=== PATIENT | female | born 1975 | race Caucasian/White ===

== ENCOUNTER 2017-07-03 12:23 | Inpatient (IN) | payer OTHER ==
[~2017-07-03] VITALS: Ht 165.1 cm; Wt 113.4 kg
[2017-07-03] MEDS ORDERED: PREN29TA PO (12:59)
[2017-07-03] MEDS ORDERED: ONDANSETRON ODT 4 MG TAB PO PRN (13:00)
[2017-07-03] MEDS ORDERED: ACETAMINOPHEN 325 MG TAB PO PRN (13:00)
[2017-07-03] MEDS ORDERED: LEVO.125 PO (13:00)
[2017-07-03] MEDS ORDERED: SODIUM CHLORIDE 0.9% FLUSH 10 ML FLUSH IV FLUSH PRN (13:00)
--- NOTE | 2017-07-03 13:01 | HHI.HP ---
HPI Chief Complaint PREC / IUGR? Travel History International Travel<30 Days: No Contact w/Intl Traveler<30Days: No History of Present Illness HPI 41 yo G1 at 35 weeks and 2 days by her LMP c/w 6w US (ALESIA 08/05/17) who i saw today for routine outpatient visit, was found to have new mild range BP of 140/ 80 and I sent to the hospital to rule out preeclampsia, also for close observation and BMZ given growth restriction and newly elevated UA Dopplers. Patient denies headache, blurry vision, epigastric pain, vaginal bleeding discharge or contractions. Endorses movement. has been complicated by growth restriction, peripheral cord insertion, hypothyroidism, advanced maternal age, h/o genital HSV, rubella equivocal status, glucose intolerance (Failed 1hr, passed 3 hour) History Past Medical History Narrative Medical 1. Obesity 2. Hypothyroidism 3. Genital HSV Obstetric History Obstetric History G1 Past Surgical History Narrative Surgical 1. 06/27/2016: Right oophorectomy Family History Narrative Family History Diabetes and hypertension Social History Alcohol Use: No Tobacco Use: No Substance Abuse: No Allergies-Medications (Allergen,Severity, Reaction): Coded Allergies: No Known Allergies (Unverified , 07/03/17) Home Meds Reported Medications Levothyroxine (Synthroid) 125 Mcg Tab, 125 MCG PO DAILY for Thyroid, #30 TAB 0 Refills 07/03/17 Vit-Iron Carbonyl ( Plus Iron 29-1 mg) 29 Mg Iron-1 Mg Tab, 1 TAB PO DAILY for Nutritional Supplement, #30 TAB 0 Refills 07/03/17 Narrative Medication Synthroid 125 g daily vitamin Review of Systems General / Constitutional: No: Fever, Weight Gain, Chills, Other Eyes: No: Diploplia, Blurred Vision, Visual changes, Pain, Photophobia HENT: No: Headaches, Vertigo, Lightheadedness Cardiovascular: No: Irregular Rhythm, Chest Pain or Discomfort, Palpitations, Tachycardia, Syncope, Varicosities, Edema, Cyanosis Respiratory: No: Cough, Short of Breath, Other Gastrointestinal: No: Nausea, Vomiting, Diarrhea Genitourinary: No: Decreased Urinary Output, Oliguria Musculoskeletal: No: Limited ROM, Weakness, Cramping, Edema, Pain Skin: No Rash, No Itching, No Dryness, No Lumps, No Change in Pigmentation, No Change in Nails, No Alopecia, No Lesions Neurologic: No: Weakness, Dizziness, Syncope, Focal Abnormalities, Coordination Problem, Headache, Slurred Speech, Seizures Psychiatric: No: Depression, Suicidal Ideations, Homicidal Ideation Endocrine: No: Heat Intolerance, Cold Intolerance, Polydipsia, Polyuria, Other Physical Exam Narrative Vitals: Temperature 98.4, pulse 77, respiratory rate 18, blood pressure 138/83, MAP 95 GENERAL: Well-nourished, well-developed patient. SKIN: Warm and dry. HEAD: Normocephalic and atraumatic. EYES: No scleral icterus. No injection or drainage. ENT: No nasal drainage noted. Mucous membranes pink. Airway patent. NECK: Supple, trachea midline. No JVD. CARDIOVASCULAR: Regular rate and rhythm without murmurs, gallops, or rubs. RESPIRATORY: Breath sounds equal bilaterally. No accessory muscle use. BREASTS: Bilateral exam showed no masses , no retractions, no nipple discharge. ABDOMEN/GI: Abdomen soft, non-tender, bowel sounds present, no rebound, no guarding, Gravid GENITOURINARY: Deferred FHT's: 140s, moderate variability, accelerations present, no decelerations TOCO: Every 3-5 minutes EXTREMITIES: No cyanosis or edema. BACK: Nontender without obvious deformity. No CVA tenderness. NEUROLOGICAL: Awake and alert. Motor and sensory grossly within normal limits. Normal speech. Caprini VTE Risk Assessment Caprini VTE Risk Assessment: Mod/High Risk (score >= 2) Caprini Risk Assessment Model Point Value = 1 Point Value = 2 Point Value = 3 Point Value = 5 Age 41-60 Minor surgery BMI > 25 kg/m2 Swollen legs Varicose veins or History of unexplained or recurrent spontaneous Oral contraceptives or hormone replacement Sepsis (< 1 month) Serious lung disease, including pneumonia (< 1 month) Abnormal pulmonary function Acute myocardial infarction Congestive heart failure (< 1 month) History of inflammatory bowel disease Medical patient at bed rest Age 61-74 Arthroscopic surgery Major open surgery (> 45 min) Laparoscopic surgery (> 45 min) Malignancy Confined to bed (> 72 hours) Immobilizing plaster cast Central venous access Age >= 75 History of VTE Family history of VTE Factor V Leiden Prothrombin [id number] Lupus anticoagulant Anticardiolipin antibodies Elevated serum homocysteine Heparin-induced thrombocytopenia Other congenital or acquired thrombophilia Stroke (< 1 month) Elective arthroplasty Hip, pelvis, or leg fracture Acute spinal cord injury (< 1 month) Prophylaxis Regimen Total Risk Factor Score Risk Level Prophylaxis Regimen 0-1 Low Early ambulation 2 Moderate Order ONE of the following: *Sequential Compression Device (SCD) *Heparin 5000 units SQ BID 3-4 Higher Order ONE of the following medications: *Heparin 5000 units SQ TID *Enoxaparin/Lovenox 40 mg SQ daily (WT < 150 kg, CrCl > 30 mL/min) *Enoxaparin/Lovenox 30 mg SQ daily (WT < 150 kg, CrCl > 10-29 mL/min) *Enoxaparin/Lovenox 30 mg SQ BID (WT < 150 kg, CrCl > 30 mL/min) AND/OR *Sequential Compression Device (SCD) 5 or more Highest Order ONE of the following medications: *Heparin 5000 units SQ TID (Preferred with Epidurals) *Enoxaparin/Lovenox 40 mg SQ daily (WT < 150 kg, CrCl > 30 mL/min) *Enoxaparin/Lovenox 30 mg SQ daily (WT < 150 kg, CrCl > 10-29 mL/min) *Enoxaparin/Lovenox 30 mg SQ BID (WT < 150 kg, CrCl > 30 mL/min) AND *Sequential Compression Device (SCD) Data Data Vital Signs Reviewed: Yes Orders Orders Admit To Inpatient (07/03/17 ) Vital Signs (Adult) [id number] AWAKE (07/03/17 12:56) Heart (07/03/17 12:56) Activity Oob Ad Mary (07/03/17 12:56) Total Protein 24hr Urine (07/03/17 12:56) Acetaminophen (Tylenol) (07/03/17 13:00) Sodium Chloride 0.9% Flush (Ns Flush) (07/03/17 21:00) Sodium Chloride 0.9% Flush (Ns Flush) (07/03/17 13:00) Ondansetron Odt (Zofran Odt) (07/03/17 13:00) Ob/Psych Drug Screen, Urine (07/03/17 12:56) Betamethasone Inj (Celestone Soluspan In (07/03/17 13:00) Code Status (07/03/17 12:56) Intake + Output Q6H (07/03/17 12:56) Notify Parameters (07/03/17 12:56) Cbc No Diff, Includes Plts (07/03/17 12:56) Comprehensive Metabolic Panel (07/03/17 12:56) Creatinine 24 Hr Urine (07/03/17 12:56) Diet Npo Except Meds (07/03/17 Lunch) Inpatient Certification (07/03/17 ) Labs labs: 12/19/2016 -A-positive, antibody negative, hemoglobin 12.0, varicella immune, rubella nonimmune, VDRL nonreactive, hepatitis B surface antigen negative, HIV negative , gonorrhea and chlamydia negative, cystic fibrosis screen negative, noninvasive screening negative, hepatitis C negative, UDS negative, sickle cell screen negative 04/23/2017 -Hemoglobin 11.5, 1 hour GTT 148, HIV nonreactive, hepatitis B surface antigen negative, 05/05/2017 Three-hour GTT: 86, 186, 137, 96. 06/11/2017 TSH 2.49 Assessment/Plan Assessment and Plan 41 yo G1 at 35 weeks and 2 days by her LMP c/w 6w US (ALESIA 08/05/17) admitted for BMZ, r/o prec and closer observation given IUGR and elevated UA dopplers. 1. IUP: Cat 1 tracing - May switch to BID EFM and TOCO if HELLP labs return WNL. NPO until labs return. - GBS to be collected by nursing - EFW (06/18) = 1631g (16%) AC 2%, Posterior placenta. 2. Concern for growth restriction: based on EFW and mostly the AC of 2% on 06/18, had been receiving serial growths due to peripheral cord insertion and the IUGR was found, UA dopplers elevated today and pulsatile flow of UV, UA showed all forward flow. Informed patient likely will require delivery and after thinking about this more I would recommend delivery after BMZ complete if maternal and status allow. - BMZ ordered for late status for FLM. 3. Rule out preeclampsia: New elevated systolic today in the office, current blood pressures, HELLP labs, P:C ordered. Will begin 24 hour urine protein as well. 4. malposition: Transverse head left on ultrasound today, made patient aware that if fetus is in this position at time of suggested delivery would require . 5. Peripheral cord insertion: see above. 6. hypothyroidism: Continue home Synthroid of 125 g daily, TSH normal on 2017 7. AMA: NIPS negative, normal AU. 8. Obesity / glucose intolerance: If BS on CMP significantly elevated due to BMZ effect will provide sliding scale 9. Uterine fibroid: anterior intramural measuring 2 x 2 cm on 06/18/ Berry Cruz MD July 03, 2017 13:01
[2017-07-03] MEDS: BETAMETHASONE SOD PHOS/ACETATE SUSP 30 MG/5 ML VIAL IM SCH (14:01)
[2017-07-03 14:40] LABS: HEMATOCRIT 35.2 % (35.0-46.0); HEMOGLOBIN 11.7 GM/DL (11.6-15.3); MEAN CORPUSCULAR HEMOGLOBIN 30.3 PG (27.0-34.0); MEAN CORPUSCULAR HGB CONC 33.3 % (32.0-36.0); MEAN PLATELET VOLUME 9.6 FL (7.0-11.0); PLATELET COUNT 238 TH/MM3 (150-450); RED BLOOD COUNT 3.86 MIL/MM3 (4.00-5.30); RED CELL DISTRIBUTION WIDTH 13.7 % (11.6-17.2); WHITE BLOOD COUNT 8.7 TH/MM3 (4.0-11.0)
[2017-07-03 15:12] LABS: ALBUMIN 2.5 GM/DL (3.4-5.0); ALT (GPT) 17 U/L (10-53); AST (GOT) 12 U/L (15-37); BICARBONATE 19.2 MEQ/L (21.0-32.0); BLOOD UREA NITROGEN 10 MG/DL (7-18); CALCIUM 8.8 MG/DL (8.5-10.1); CHLORIDE 109 MEQ/L (98-107); CREATININE 0.69 MG/DL (0.50-1.00); GLOMERULAR FILTRATION RATE 95 ML/MIN (>89); GLUCOSE,RANDOM 60 MG/DL (74-106); SODIUM (NA) 142 MEQ/L (136-145)
[2017-07-03 15:15] LABS: ALKALINE PHOSPHATASE 89 U/L (45-117); TOTAL BILIRUBIN ADULT 0.2 MG/DL (0.2-1.0); TOTAL PROTEIN 6.6 GM/DL (6.4-8.2)
[2017-07-03] MEDS: SODIUM CHLORIDE 0.9% FLUSH 10 ML FLUSH IV FLUSH SCH (21:00)
[2017-07-04] MEDS ORDERED: LEVOTHYROXINE SODIUM 125 MCG TAB PO SCH (06:00)
--- NOTE | 2017-07-04 08:54 | PD.OB.ANTE ---
Subjective Diagnosis: (1) 35 weeks gestation of (2) growth restriction Interval History quiet night with no UCs strip category one with no decels no CERDA, Nausea, vomiting, blurred vision or RUQT no leaking, bleeding movement perceived Objective Lab & Micro Results Test 07/03/17 12:45 07/03/17 13:30 Urine Random Creatinine 15 MG/DL Urine Random Total Protein LESS THAN 5 MG/DL Urine Protein/Creatinine Ratio 0.33 Urine Opiates Screen NEG Urine Barbiturates Screen NEG Urine Amphetamines Screen NEG Urine Benzodiazepines Screen NEG Urine Cocaine Screen NEG Urine Cannabinoids Screen NEG White Blood Count 8.7 TH/MM3 Red Blood Count 3.86 MIL/MM3 Hemoglobin 11.7 GM/DL Hematocrit 35.2 % Mean Corpuscular Volume 91.0 FL Mean Corpuscular Hemoglobin 30.3 PG Mean Corpuscular Hemoglobin Concent 33.3 % Red Cell Distribution Width 13.7 % Platelet Count 238 TH/MM3 Mean Platelet Volume 9.6 FL Blood Urea Nitrogen 10 MG/DL Creatinine 0.69 MG/DL Random Glucose 60 MG/DL Total Protein 6.6 GM/DL Albumin 2.5 GM/DL Calcium Level 8.8 MG/DL Alkaline Phosphatase 89 U/L Aspartate Amino Transf (AST/SGOT) 12 U/L Alanine Aminotransferase (ALT/SGPT) 17 U/L Total Bilirubin 0.2 MG/DL Sodium Level 142 MEQ/L Potassium Level 3.9 MEQ/L Chloride Level 109 MEQ/L Carbon Dioxide Level 19.2 MEQ/L Anion Gap 14 MEQ/L Estimat Glomerular Filtration Rate 95 ML/MIN Date/Time Source Procedure Growth Status 07/03/17 22:47 Genital Vaginal Group B Streptococcus Screen Pending Received Physical Exam GENERAL: Well-nourished, well-developed patient. CARDIOVASCULAR: Regular rate and rhythm without murmurs, gallops, or rubs. RESPIRATORY: Breath sounds equal bilaterally. No accessory muscle use. ABDOMEN/GI: Abdomen soft, non-tender. EXTREMITIES: No cyanosis. Mild edema, non-tender, without signs of DVT. Assessment and Plan Assessment and Plan 41 yo G1 at 35 weeks and 2 days by her LMP c/w 6w US (ALESIA 08/05/17) admitted for BMZ, r/o prec and closer observation given IUGR and elevated UA dopplers. 1. IUP: Cat 1 tracing - May switch to BID EFM and TOCO if HELLP labs return WNL. NPO until labs return. - GBS to be collected by nursing - EFW (06/18) = 1631g (16%) AC 2%, Posterior placenta. 2. Concern for growth restriction: based on EFW and mostly the AC of 2% on 06/18, had been receiving serial growths due to peripheral cord insertion and the IUGR was found, UA dopplers elevated today and pulsatile flow of UV, UA showed all forward flow. Informed patient likely will require delivery and after thinking about this more I would recommend delivery after BMZ complete if maternal and status allow. - BMZ ordered for late status for FLM. 3. Rule out preeclampsia: New elevated systolic today in the office, current blood pressures, HELLP labs, P:C ordered. Will begin 24 hour urine protein as well. 4. malposition: Transverse head left on ultrasound today, made patient aware that if fetus is in this position at time of suggested delivery would require . 5. Peripheral cord insertion: see above. 6. hypothyroidism: Continue home Synthroid of 125 g daily, TSH normal on 2017 7. AMA: NIPS negative, normal AU. 8. Obesity / glucose intolerance: If BS on CMP significantly elevated due to BMZ effect will provide sliding scale 9. Uterine fibroid: anterior intramural measuring 2 x 2 cm on 06/18/ US 07/04/17 wait for repeat beta methasone, results of 24 hour urine and can go home today no longer can work return to office Thursday am for BPP and probable return to [facility] for induction or section for malposition understands if any symptoms of pre eclampsia to return to OB ED for evaluation kick counts Home after above. Mitali Paredes MD July 04, 2017 08:54
[2017-07-04] MEDS: SODIUM CHLORIDE 0.9% FLUSH 10 ML FLUSH IV FLUSH SCH (09:00)
[2017-07-04] MEDS ORDERED: VALT500T PO (09:00)
[2017-07-04] MEDS ORDERED: valACYclovir HCL 500 MG TAB PO SCH (09:00)
--- NOTE | 2017-07-04 09:00 | HHI.DCPOC ---
Discharge Care Plan Report Symptoms to Your Doctor -Temperature above 100.5 degrees -Redness, of incision or excessive or foul smelling drainage -Unusual pain or calf pain -Increased vaginal bleeding -Painful or difficulty urinating -Feelings of extreme sadness or anxiety after 2 weeks Goals to Promote Your Health * To prevent worsening of your condition and complications * To maintain your health at the optimal level Directions to Meet Your Goals Take your medications as prescribed Follow your dietary instruction Follow activity as directed Ensure plenty of rest for recovery Drink fluids for hydration Keep your appointments as scheduled Take your immunizations and boosters as scheduled If your symptoms worsen call your PCP, if no PCP go to Urgent Care Center or Emergency Room Smoking is Dangerous to Your Health. Avoid second hand smoke Call the 24-hour crisis hotline for domestic abuse at Mitali Paredes MD July 04, 2017 09:00
[2017-07-04 10:30] LABS: AUTOMATED NEUTROPHIL # 9.1 TH/MM3 (1.8-7.7); BASOPHIL % 0.1 % (0.0-2.0); HEMATOCRIT 35.5 % (35.0-46.0); LYMPH % 15.2 % (9.0-44.0); LYMPHOCYTE # 1.7 TH/MM3 (1.0-4.8); MEAN CELL VOLUME 90.2 FL (80.0-100.0); MEAN CORPUSCULAR HEMOGLOBIN 30.6 PG (27.0-34.0); MEAN CORPUSCULAR HGB CONC 33.9 % (32.0-36.0); MEAN PLATELET VOLUME 9.5 FL (7.0-11.0); MONO % 2.9 % (0.0-8.0); MONOCYTE # 0.3 TH/MM3 (0-0.9); NEUT % 81.8 % (16.0-70.0); PLATELET COUNT 266 TH/MM3 (150-450); RED BLOOD COUNT 3.93 MIL/MM3 (4.00-5.30); RED CELL DISTRIBUTION WIDTH 13.7 % (11.6-17.2); WHITE BLOOD COUNT 11.1 TH/MM3 (4.0-11.0)
[2017-07-04 10:51] LABS: ALBUMIN 2.5 GM/DL (3.4-5.0); CREATININE 0.82 MG/DL (0.50-1.00)
[2017-07-04 10:56] LABS: DIRECT BILIRUBIN ADULT 0.1 MG/DL (0.0-0.2); INDIRECT BILIRUBIN 0.2 MG/DL (0.0-0.8); TOTAL BILIRUBIN ADULT 0.3 MG/DL (0.2-1.0); TOTAL PROTEIN 6.7 GM/DL (6.4-8.2)
[2017-07-04 13:05] LABS: CREATININE 24 HOUR, URINE 1.89 GM/24HR (0.63-2.50)
[2017-07-04] MEDS: BETAMETHASONE SOD PHOS/ACETATE SUSP 30 MG/5 ML VIAL IM SCH (13:30)
== END 2017-07-04 13:47 | disposition home or self-care (01) | DRG 781 ==
LOC: H2EA 12:23 → OBSVTOIN 13:00
PROVIDERS: ADMIT Obstetrics & Gynecology; ATTEND Obstetrics & Gynecology
DX: O36.5930 Maternal care for other known or suspected poor fetal growth, third trimester, not applicable or unspecified (principal); O99.283 Endocrine, nutritional and metabolic diseases complicating pregnancy, third trimester; Z68.41 Body mass index [BMI] 40.0-44.9, adult; D25.1 Intramural leiomyoma of uterus; O26.893 Other specified pregnancy related conditions, third trimester; O99.810 Abnormal glucose complicating pregnancy; O09.513 Supervision of elderly primigravida, third trimester; E03.9 Hypothyroidism, unspecified; O99.213 Obesity complicating pregnancy, third trimester; E66.9 Obesity, unspecified; O32.2XX0 Maternal care for transverse and oblique lie, not applicable or unspecified; O34.13 Maternal care for benign tumor of corpus uteri, third trimester; Z90.721 Acquired absence of ovaries, unilateral; Z86.19 Personal history of other infectious and parasitic diseases; Z3A.35 35 weeks gestation of pregnancy
CPT/HCPCS: 80053; 80076; 80307; 82565; 82570; 84156; 84157; 85025; 85027; 87081; G0481; J0702

== ENCOUNTER 2017-07-15 17:48 | Inpatient (IN) | payer OTHER ==
[~2017-07-15] VITALS: Ht 165.1 cm; Wt 113.0 kg
[~2017-07-15 17:48] MED LIST: LEVO.125 PO; PREN29TA PO; VALT500T PO
[2017-07-15] MEDS: LACTATED RINGER'S 1000 ML INJ 1,000 ML IV SCH ×2 (18:06→22:24)
[2017-07-15] MEDS ORDERED: LACTATED RINGER'S 1000 ML BOLUS IV PRN (19:15)
[2017-07-15] MEDS ORDERED: CITRIC ACID-SODIUM CITRATE LIQ 30 ML UDC PO SCH ×2 (19:15→19:30)
[2017-07-15] MEDS ORDERED: LIDOCAINE HCL 1% 50 ML VIAL INFIL PRN ×2 (19:15→19:30)
[2017-07-15] MEDS ORDERED: NS 1000 ML IV PRN (19:15)
[2017-07-15] MEDS ORDERED: OXYTOCIN 30 UNITS 500ML PREMIX IV ONE (19:15)
[2017-07-15] MEDS ORDERED: LACTATED RINGER'S 1000 ML IV SCH (19:15)
[2017-07-15] MEDS ORDERED: MINERAL OIL 10 ML VIAL TOPICAL PRN ×2 (19:15→19:30)
[2017-07-15] MEDS ORDERED: NS 500 ML BOLUS IV PRN (19:15)
[2017-07-15] MEDS ORDERED: LIDOCAINE HCL 1% 50 ML VIAL I-DERMAL PRN ×2 (19:15→19:30)
[2017-07-15] MEDS ORDERED: LACTATED RINGER'S 1000 ML INJ 1,000 ML IV PRN (19:17)
[2017-07-15] MEDS ORDERED: ONDANSETRON ODT 4 MG TAB PO PRN (19:30)
[2017-07-15] MEDS ORDERED: SODIUM CHLORID 0.9% 500 ML INJ 500 ML IV PRN (19:30)
[2017-07-15] MEDS ORDERED: SODIUM CHLORIDE 0.9% FLUSH 10 ML FLUSH IV FLUSH PRN (19:30)
[2017-07-15] MEDS ORDERED: OXYTOCIN 30 UNITS-500ML PREMIX 500 ML IV ONE (19:30)
[2017-07-15] MEDS ORDERED: SODIUM CHLOR 0.9% 1000 ML INJ 1,000 ML IV PRN (19:37)
--- NOTE | 2017-07-15 19:41 | HHI.PR ---
[employer] Note Note Note placed from home, did not evaluate pt face to face, H&P dictated and pending survey party chief S: Per nursing, pt w/o complaints O: VS: BP 145/90, P 89, RR 18, T 98.2 FHTs: 140s moderate variability, no decels, positive acceleration [place]: occasional contraction A/P 41 yo G1 at 37w0d by L/6 (ALESIA 08/05/17) here for IOL secondary to IUGR and GHTN. 1. IUP: Cat 1 tracing. - GBS neg and cephalic by nursing US on admission. s/p BMZ on 07/04 - EFW (06/18) = 1631g (16%) AC 2%, Posterior placenta. 2. IOL: BS unfavorable in the office, nursing to place Cervidil. Allow to eat if cat 1 after placement 3. IUGR: based on AC of 2% on 06/18. UA dop have been elevated at time as an outpatient but was UL of normal on 07/07. Had been receiving serial growths due to peripheral cord insertion and the IUGR was found. 4. GHTN: Based on elevated BPs, normal HELLP labs and 24hr urine of 235mg (07/04) , however P:C 0.33, will repeat HELLP labs now. 5. Peripheral cord insertion: see above. 6. Hypothyroidism: Continue home Synthroid of 125 g daily, TSH normal on 2017 7. AMA: NIPS negative, normal AU. 8. Obesity / glucose intolerance: See above 9. Uterine fibroid: anterior intramural measuring 2 x 2 cm on 06/18/ US, should affect labor 10: h/o genital HSV: no lesions on outpt exam, has been compliant with valtrex for suppression. 11. RNI: vaccine . Berry Cruz MD Jul 15, 2017 19:41
[2017-07-15] MEDS ORDERED: DINOPROSTONE 10 MG VAG INSERT VAGINAL ONE (20:00)
[2017-07-15 20:09] LABS: AUTOMATED NEUTROPHIL # 6.6 TH/MM3 (1.8-7.7); BASOPHIL % 0.3 % (0.0-2.0); EOSINOPHIL # 0.1 TH/MM3 (0-0.4); EOSINOPHIL % 0.6 % (0.0-4.0); HEMATOCRIT 36.4 % (35.0-46.0); HEMOGLOBIN 12.6 GM/DL (11.6-15.3); LYMPH % 25.7 % (9.0-44.0); LYMPHOCYTE # 2.5 TH/MM3 (1.0-4.8); MEAN CELL VOLUME 90.7 FL (80.0-100.0); MEAN CORPUSCULAR HEMOGLOBIN 31.4 PG (27.0-34.0); MEAN CORPUSCULAR HGB CONC 34.6 % (32.0-36.0); MEAN PLATELET VOLUME 9.8 FL (7.0-11.0); MONOCYTE # 0.5 TH/MM3 (0-0.9); NEUT % 68.4 % (16.0-70.0); PLATELET COUNT 260 TH/MM3 (150-450); RED BLOOD COUNT 4.02 MIL/MM3 (4.00-5.30); RED CELL DISTRIBUTION WIDTH 13.8 % (11.6-17.2); WHITE BLOOD COUNT 9.6 TH/MM3 (4.0-11.0)
[2017-07-15 20:20] LABS: AMORPHOUS SEDIMENT, URINE RARE; BACTERIA, URINE MANY /hpf; BILIRUBIN, URINE NEG (NEG); BLOOD, URINE NEG (NEG); GLUCOSE,URINE NEG (NEG); KETONE, URINE NEG (NEG); MUCUS URINE FEW /lpf (OCC); NITRITE,URINE NEG (NEG); PH, URINE 5.5 (5.0-8.5); SQUAMOUS EPITHELIAL CELL URINE 2 /hpf (0-5); URINE COLOR YELLOW (YELLW/STRAW); URINE LEUKOCYTE ESTERASE NEG (NEG)
[2017-07-15 20:26] LABS: ALBUMIN 2.7 GM/DL (3.4-5.0); AST (GOT) 12 U/L (15-37); BICARBONATE 16.8 MEQ/L (21.0-32.0); BLOOD UREA NITROGEN 14 MG/DL (7-18); CALCIUM 9.3 MG/DL (8.5-10.1); CHLORIDE 107 MEQ/L (98-107); CREATININE 0.83 MG/DL (0.50-1.00); GLOMERULAR FILTRATION RATE 77 ML/MIN (>89); GLUCOSE,RANDOM 119 MG/DL (74-106); SODIUM (NA) 139 MEQ/L (136-145)
[2017-07-15 20:27] LABS: ALT (GPT) 21 U/L (10-53)
[2017-07-15 20:30] LABS: ALKALINE PHOSPHATASE 104 U/L (45-117); TOTAL BILIRUBIN ADULT 0.2 MG/DL (0.2-1.0); TOTAL PROTEIN 7.1 GM/DL (6.4-8.2)
[2017-07-15] MEDS ORDERED: ZOLPIDEM TARTRATE 5 MG TAB PO PRN (20:45)
[2017-07-16] MEDS: LEVOTHYROXINE SODIUM 125 MCG TAB PO SCH (07:19)
[2017-07-16] MEDS ORDERED: MISOPROSTOL 100 MCG TAB VAGINAL PRN (08:45)
--- NOTE | 2017-07-16 08:47 | HHI.PR ---
[employer] INTERNAL Note Note S: Patient without complaints, minimal contractions, no vaginal bleeding or leakage of fluid, denies headache, epigastric pain or right upper quadrant pain. O: : Cervidil removed, cervix closed, thick, soft, posterior position, medium consistency FHTs: 140s moderate variability, no decels, positive acceleration [place]: occasional contraction A/P 41 yo G1 at 37w1d by L/6 (ALESIA 08/05/17) here for IOL secondary to IUGR and GHTN. 1. IUP: Cat 1 tracing. - GBS neg and cephalic by nursing US on admission. s/p BMZ on 07/04 - EFW (06/18) = 1631g (16%) AC 2%, Posterior placenta. 2. IOL: Status post Cervidil, Huerta score still and favorable, begin continued ripening with PV medial proximal 25 mcg every 4 hours. Patient aware of likelihood of prolonged induction. Allow to eat if cat 1 after miso placement 3. IUGR: based on AC of 2% on 06/18. UA dop have been elevated at time as an outpatient but was UL of normal on 07/07. Had been receiving serial growths due to peripheral cord insertion and the IUGR was found. 4. GHTN: Based on elevated BPs, normal HELLP labs and 24hr urine of 235mg (07/04) , however P:C 0.33. Repeat HELLP labs on arrival normal, blood pressures mostly normotensive occasional mild range, no signs or symptoms of preeclampsia. 5. Peripheral cord insertion: see above. 6. Hypothyroidism: Continue home Synthroid of 125 g daily, TSH normal on 2017 7. AMA: NIPS negative, normal AU. 8. Obesity / glucose intolerance: See above 9. Uterine fibroid: anterior intramural measuring 2 x 2 cm on 06/18/ US, should affect labor or delivery 10: h/o genital HSV: no lesions on exam today, has been compliant with valtrex for suppression. 11. RNI: vaccine . Berry Cruz MD Jul 16, 2017 08:47
[2017-07-16] MEDS: SODIUM CHLORIDE 0.9% FLUSH 10 ML FLUSH IV FLUSH SCH ×4 (09:00→21:00)
--- NOTE | 2017-07-16 09:27 | HHI.HP ---
HPI Chief Complaint Induction of labor Travel History International Travel<30 Days: No Contact w/Intl Traveler<30Days: No Known Affected Area: No History of Present Illness HPI 41 yo G1 at 37w1d by L/6 (ALESIA 08/05/17) here for IOL secondary to IUGR and GHTN. History Past Medical History Narrative Medical 1. Obesity 2. Hypothyroidism 3. Genital HSV Obstetric History Obstetric History G1 Past Surgical History Narrative Surgical 1. 06/27/2016: Right oophorectomy Family History Narrative Family History Diabetes and hypertension Social History Alcohol Use: No Tobacco Use: No Substance Abuse: No Allergies-Medications (Allergen,Severity, Reaction): Coded Allergies: No Known Allergies (Unverified , 07/03/17) Home Meds Active Scripts Valacyclovir (Valtrex) 500 Mg Tab, 500 MG PO Q12HR for prophylaxsis, #60 TAB Prov:Mitali Paredes MD 07/04/17 Reported Medications Levothyroxine (Synthroid) 125 Mcg Tab, 125 MCG PO DAILY for Thyroid, #30 TAB 0 Refills 07/03/17 Vit-Iron Carbonyl ( Plus Iron 29-1 mg) 29 Mg Iron-1 Mg Tab, 1 TAB PO DAILY for Nutritional Supplement, #30 TAB 0 Refills 07/03/17 Physical Exam Temperature 97.8, respiratory rate 18, pulse 72, blood pressure 129/93 Narrative GENERAL: Well-nourished, well-developed patient. SKIN: Warm and dry. HEAD: Normocephalic and atraumatic. EYES: No scleral icterus. No injection or drainage. ENT: No nasal drainage noted. Mucous membranes pink. Airway patent. NECK: Supple, trachea midline. No JVD. CARDIOVASCULAR: Regular rate and rhythm without murmurs, gallops, or rubs. RESPIRATORY: Breath sounds equal bilaterally. No accessory muscle use. BREASTS: Bilateral exam showed no masses , no retractions, no nipple discharge. ABDOMEN/GI: Abdomen soft, non-tender, bowel sounds present, no rebound, no guarding Gravid GENITOURINARY: Closed, thick, high FHT's: 120s-130s, moderate variability, accelerations present, no decelerations Tocometry: No contractions EXTREMITIES: No cyanosis or edema. BACK: Nontender without obvious deformity. No CVA tenderness. NEUROLOGICAL: Awake and alert. Motor and sensory grossly within normal limits. Normal speech. Caprini VTE Risk Assessment Caprini VTE Risk Assessment: Mod/High Risk (score >= 2) Caprini Risk Assessment Model Point Value = 1 Point Value = 2 Point Value = 3 Point Value = 5 Age 41-60 Minor surgery BMI > 25 kg/m2 Swollen legs Varicose veins or History of unexplained or recurrent spontaneous Oral contraceptives or hormone replacement Sepsis (< 1 month) Serious lung disease, including pneumonia (< 1 month) Abnormal pulmonary function Acute myocardial infarction Congestive heart failure (< 1 month) History of inflammatory bowel disease Medical patient at bed rest Age 61-74 Arthroscopic surgery Major open surgery (> 45 min) Laparoscopic surgery (> 45 min) Malignancy Confined to bed (> 72 hours) Immobilizing plaster cast Central venous access Age >= 75 History of VTE Family history of VTE Factor V Leiden Prothrombin [id number] Lupus anticoagulant Anticardiolipin antibodies Elevated serum homocysteine Heparin-induced thrombocytopenia Other congenital or acquired thrombophilia Stroke (< 1 month) Elective arthroplasty Hip, pelvis, or leg fracture Acute spinal cord injury (< 1 month) Prophylaxis Regimen Total Risk Factor Score Risk Level Prophylaxis Regimen 0-1 Low Early ambulation 2 Moderate Order ONE of the following: *Sequential Compression Device (SCD) *Heparin 5000 units SQ BID 3-4 Higher Order ONE of the following medications: *Heparin 5000 units SQ TID *Enoxaparin/Lovenox 40 mg SQ daily (WT < 150 kg, CrCl > 30 mL/min) *Enoxaparin/Lovenox 30 mg SQ daily (WT < 150 kg, CrCl > 10-29 mL/min) *Enoxaparin/Lovenox 30 mg SQ BID (WT < 150 kg, CrCl > 30 mL/min) AND/OR *Sequential Compression Device (SCD) 5 or more Highest Order ONE of the following medications: *Heparin 5000 units SQ TID (Preferred with Epidurals) *Enoxaparin/Lovenox 40 mg SQ daily (WT < 150 kg, CrCl > 30 mL/min) *Enoxaparin/Lovenox 30 mg SQ daily (WT < 150 kg, CrCl > 10-29 mL/min) *Enoxaparin/Lovenox 30 mg SQ BID (WT < 150 kg, CrCl > 30 mL/min) AND *Sequential Compression Device (SCD) Data Data Vital Signs Reviewed: Yes Orders Orders Diet Regular Basic (07/15/17 Dinner) Ondansetron Odt (Zofran Odt) (07/15/17 19:30) Oxytocin 30 Units-500ml Premix (Pitocin (07/15/17 19:15) Admit To Inpatient (07/15/17 ) Vital Signs (Adult) .Per protocol (07/15/17:19) Activity Oob Ad Mary (07/15/17 19:19) Heart (07/15/17:19) Amnioinfusion (07/15/17:19) Urinary Catheter Management .ONCE (07/15/17:19) Complete Blood Count With Diff (07/15/17:19) Hold Clot (07/15/17:) Abo/Rh Blood Type (07/15/17:19) Urinalysis - C+S If Indicated (07/15/17:19) Ob/Psych Drug Screen, Urine (07/15/17:19) Resp Oxygen Non Rebreathe Mask (07/15/17 ) ^ Epidural / Intrathecal Infus (07/15/17:19) Admit To Inpatient (07/15/17 ) Code Status (07/15/17 19:17) Activity Bed Rest (07/15/17:17) Notify Parameters (07/15/17:17) Comprehensive Metabolic Panel (07/15/17 19:17) ^ Labor Induction (07/15/17 19:17) ^ Vaginal Insert (07/15/17 19:17) ^ Vaginal Lavage (07/15/17:17) Sodium Chloride 0.9% Flush (Ns Flush) (07/15/17 21:00) Sodium Chloride 0.9% Flush (Ns Flush) (07/15/17 19:30) Dinoprostone Vag Insert (Cervidil Vag In (07/15/17 20:00) Heart (07/15/17 19:17) Amnioinfusion (07/15/17 19:17) Urinary Catheter Management .ONCE (07/15/17 19:17) Lactated Ringer's 1000 Ml Inj (Lr 1000 M (07/15/17 19:17) Lactated Ringer's 1000 Ml Inj (Lr 1000 M (07/15/17 19:17) Sodium Chlorid 0.9% 500 Ml Inj (Ns 500 M (07/15/17 19:30) Sodium Chlor 0.9% 1000 Ml Inj (Ns 1000 M (07/15/17 19:37) Lidocaine 1% Inj (50 Ml) (Xylocaine 1% I (07/15/17 19:30) Citric Acid-Sodium Citrate Liq (Bicitra (07/15/17 19:30) Fentanyl Inj (Fentanyl Inj) (07/15/17 19:30) Fentanyl Inj (Fentanyl Inj) (07/15/17 19:30) Resp Oxygen Non Rebreathe Mask (07/15/17 ) ^ Epidural / Intrathecal Infus (07/15/17 19:17) Oxytocin 30 Units-500ml Premix (Pitocin (07/15/17 19:30) Lidocaine 1% Inj (50 Ml) (Xylocaine 1% I (07/15/17 19:30) Light Mineral Oil (Muri-Lube Oil) (07/15/17 19:30) ^ Other Nursing Orders (07/15/17 19:17) Diet Regular Basic (07/15/17 Breakfast) Inpatient Certification (07/15/17 ) Specimen To Be Collected PRN (07/15/17 19:17) Levothyroxine (Synthroid) (07/16/17 09:00) Urine Culture (07/15/17 18:04) Zolpidem (Ambien) (07/15/17 20:45) ^ Vaginal Lavage (07/16/17 08:42) Misoprostol (Cytotec) (07/16/17 08:45) Group B Strep: Negative Labs Laboratory Tests Test 07/15/17 18:04 White Blood Count 9.6 Red Blood Count 4.02 Hemoglobin 12.6 Hematocrit 36.4 Mean Corpuscular Volume 90.7 Mean Corpuscular Hemoglobin 31.4 Mean Corpuscular Hemoglobin Concent 34.6 Red Cell Distribution Width 13.8 Platelet Count 260 Mean Platelet Volume 9.8 Neutrophils (%) (Auto) 68.4 Lymphocytes (%) (Auto) 25.7 Monocytes (%) (Auto) 5.0 Eosinophils (%) (Auto) 0.6 Basophils (%) (Auto) 0.3 Neutrophils # (Auto) 6.6 Lymphocytes # (Auto) 2.5 Monocytes # (Auto) 0.5 Eosinophils # (Auto) 0.1 Basophils # (Auto) 0.0 CBC Comment DIFF FINAL Differential Comment Urine Color YELLOW Urine Turbidity HAZY Urine pH 5.5 Urine Specific [place] 1.023 Urine Protein NEG Urine Glucose (UA) NEG Urine Ketones NEG Urine Occult Blood NEG Urine Nitrite NEG Urine Bilirubin NEG Urine Urobilinogen LESS THAN 2.0 Urine Leukocyte Esterase NEG Urine RBC 1 Urine WBC 3 Urine Squamous Epithelial Cells 2 Urine Amorphous Sediment RARE Urine Bacteria MANY Urine Mucus FEW Microscopic Urinalysis Comment CULTURE INDICATED Blood Urea Nitrogen 14 Creatinine 0.83 Random Glucose 119 Total Protein 7.1 Albumin 2.7 Calcium Level 9.3 Alkaline Phosphatase 104 Aspartate Amino Transf (AST/SGOT) 12 Alanine Aminotransferase (ALT/SGPT) 21 Total Bilirubin 0.2 Sodium Level 139 Potassium Level 3.8 Chloride Level 107 Carbon Dioxide Level 16.8 Anion Gap 15 Estimat Glomerular Filtration Rate 77 Urine Opiates Screen NEG Urine Barbiturates Screen NEG Urine Amphetamines Screen NEG Urine Benzodiazepines Screen NEG Urine Cocaine Screen NEG Urine Cannabinoids Screen NEG Date/Time Source Procedure Growth Status 07/15/17 18:04 Urine Clean Catch Urine Culture Pending Received labs: 12/19/2016 -A-positive, antibody negative, hemoglobin 12.0, varicella immune, rubella nonimmune, VDRL nonreactive, hepatitis B surface antigen negative, HIV negative , gonorrhea and chlamydia negative, cystic fibrosis screen negative, noninvasive screening negative, hepatitis C negative, UDS negative, sickle cell screen negative 04/23/2017 -Hemoglobin 11.5, 1 hour GTT 148, HIV nonreactive, hepatitis B surface antigen negative, 05/05/2017 Three-hour GTT: 86, 186, 137, 96. 06/11/2017 TSH 2.49 Assessment/Plan Assessment and Plan A/P 41 yo G1 at 37w1d by L/6 (ALESIA 08/05/17) here for IOL secondary to IUGR and GHTN. 1. IUP: Cat 1 tracing. - GBS neg and cephalic by nursing US on admission. s/p BMZ on 07/04 - EFW (06/18) = 1631g (16%) AC 2%, Posterior placenta. 2. IOL: BS unfavorable in the office, nursing to place Cervidil. Allow to eat if cat 1 after placement 3. IUGR: based on AC of 2% on 06/18. UA dop have been elevated at time as an outpatient but was UL of normal on 07/07. Had been receiving serial growths due to peripheral cord insertion and the IUGR was found. 4. GHTN: Based on elevated BPs, normal HELLP labs and 24hr urine of 235mg (07/04) , however P:C 0.33, will repeat HELLP labs now. 5. Peripheral cord insertion: see above. 6. Hypothyroidism: Continue home Synthroid of 125 g daily, TSH normal on 2017 7. AMA: NIPS negative, normal AU. 8. Obesity / glucose intolerance: See above 9. Uterine fibroid: anterior intramural measuring 2 x 2 cm on 06/18/ US, should affect labor 10: h/o genital HSV: no lesions on outpt exam, has been compliant with valtrex for suppression. 11. RNI: vaccine . Berry Cruz MD Jul 16, 2017 09:27
[2017-07-16] MEDS: MISOPROSTOL 25 MCG TAB VAGINAL PRN ×3 (10:14→20:01)
--- NOTE | 2017-07-16 19:28 | HHI.PR ---
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 O: : Deferred. Per nursing prior to recent misoprostol placement closed thick and high. FHTs: 140s moderate variability, no decels, positive acceleration [place]: occasional contraction A/P 41 yo G1 at 37w1d by L/6 (ALESIA 08/05/17) here for IOL secondary to IUGR and GHTN. 1. IUP: Cat 1 tracing. - GBS neg and cephalic by nursing US on admission. s/p BMZ on 07/04 - EFW (06/18) = 1631g (16%) AC 2%, Posterior placenta. 2. IOL: Status post Cervidil and 25mcg PV miso x2. Huerat score still unfavorable, continue PV misoprostol overnight, will rassess in the morning, if no dilation then informed pt and he partner that would probably consider this a failed induction, do not feel it would be appropriate and safe given the reasons for induction of labor to send home and reattempt at a later date. Will make patient nothing by mouth at midnight if that scenario arises. However if she has dilated some will consider Cook catheter or Pitocin in the morning. 3. IUGR: based on AC of 2% on 06/18. UA dop have been elevated at time as an outpatient but was UL of normal on 07/07. Had been receiving serial growths due to peripheral cord insertion and the IUGR was found. 4. GHTN: Based on elevated BPs, normal HELLP labs and 24hr urine of 235mg (07/04) , however P:C 0.33. Repeat HELLP labs on arrival normal, blood pressures mostly normotensive occasional mild range, no signs or symptoms of preeclampsia. 5. Peripheral cord insertion: see above. 6. Hypothyroidism: Continue home Synthroid of 125 g daily, TSH normal on 2017 7. AMA: NIPS negative, normal AU. 8. Obesity / glucose intolerance: See above 9. Uterine fibroid: anterior intramural measuring 2 x 2 cm on 06/18/ US, should affect labor or delivery 10: h/o genital HSV: no lesions on exam today, has been compliant with valtrex for suppression. 11. RNI: vaccine . Berry Cruz MD Jul 16, 2017 19:28
[2017-07-17] MEDS: MISOPROSTOL 25 MCG TAB VAGINAL PRN ×2 (01:20→03:53)
--- NOTE | 2017-07-17 06:24 | HHI.PR ---
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 O: : 1/T/H/Mid/Medium. Cook cath placed with 80/80cc FHTs: 140s moderate variability, occasional variable, at times overnight had late decels that resolved spontaneously, positive acceleration. [place]: occasional contraction A/P 41 yo G1 at 37w2d by L/6 (ALESIA 08/05/17) here for IOL secondary to IUGR and GHTN. 1. IUP: Cat 1 tracing. - GBS neg and cephalic by nursing US on admission. s/p BMZ on 07/04 - EFW (06/18) = 1631g (16%) AC 2%, Posterior placenta. 2. IOL: Status post Cervidil and 25mcg PV miso x5. BS still unfavorable but able to place cook cath at 6am, will remove in 12 hours. Given occasional cat 2 tracing with late appearing decels will begin low dose pit for SONOGRAM TECHNICIAN, will still be NPO in case has + SONOGRAM TECHNICIAN then will proceed with . If neg then d/c pit and continue with Cook only x 12 hrs and make NPO at noon incase patient has no change after removal and my operations and maintenance technican partner desires to proceed with at that time for failed IOL. 3. IUGR: based on AC of 2% on 06/18. UA dop have been elevated at time as an outpatient but was UL of normal on 07/07. Had been receiving serial growths due to peripheral cord insertion and the IUGR was found. 4. GHTN: Based on elevated BPs, normal HELLP labs and 24hr urine of 235mg (07/04) , however P:C 0.33. Repeat HELLP labs on arrival normal, blood pressures mostly normotensive occasional mild range, no signs or symptoms of preeclampsia. 5. Peripheral cord insertion: see above. 6. Hypothyroidism: Continue home Synthroid of 125 g daily, TSH normal on 2017 7. AMA: NIPS negative, normal AU. 8. Obesity / glucose intolerance: See above 9. Uterine fibroid: anterior intramural measuring 2 x 2 cm on 06/18/ US, should affect labor or delivery 10: h/o genital HSV: no lesions on exam today, has been compliant with valtrex for suppression. 11. RNI: vaccine . Berry Cruz MD Jul 17, 2017 06:24
[2017-07-17] MEDS ORDERED: OXYTOCIN 30 UNITS-500ML PREMIX 500 ML IV PRN ×2 (06:45→21:30)
[2017-07-17] MEDS: LEVOTHYROXINE SODIUM 125 MCG TAB PO SCH (07:13)
--- NOTE | 2017-07-17 08:09 | PD.LABORPN ---
Subjective Subjective sleeping soundly Objective Objective Cook catheter placed at 6:30 just received fetanyl Weeks Gestation: 37 Gest Age Assessed Date: Jul 17, 2017 Gest Age Assessed Time: 08:06 Pt started active labor?: No Medical induction of labor?: No Artificial rupture of membrane: No Assessment/Plan Assessment and Plan 37 week with IUGR due to peripheral cord insertion unfavorable cervix with no change on cervidil and cytotec low dose pit today. If no change or if not tolerated section Mitali Barnett MD Jul 17, 2017 08:09
[2017-07-17] MEDS ORDERED: fentaNYL 2MCG-BUPIV 0.125% INJ 150 ML EPIDURAL ONE (09:08)
[2017-07-17] MEDS ORDERED: ePHEDrine/NS 25 MG/5 ML SYRINGE ONE (09:09)
[2017-07-17] MEDS: LACTATED RINGER'S 1000 ML INJ 1,000 ML IV SCH (09:20)
[2017-07-17] MEDS ORDERED: LIDOCAINE 2%/EPINEPHrine PF 1:200,000 20ML SDV ONE (09:36)
[2017-07-17] MEDS ORDERED: LACTATED RINGER'S 1000 ML INJ 1,000 ML IV ONE (12:00)
[2017-07-17] MEDS ORDERED: OXYTOCIN 10 UNIT/ML AMP IV ONE (12:00)
[2017-07-17] MEDS ORDERED: LIDOCAINE 2%/EPINEPHrine PF 1:200,000 20ML SDV OTHER ONE (12:00)
[2017-07-17] MEDS ORDERED: DEXAMETHASONE SOD PHOS 4 MG/ML VIAL IV ONE (12:00)
[2017-07-17] MEDS ORDERED: ceFAZolin INJ 1,000 MG VIAL IV ONE (12:00)
[2017-07-17] MEDS ORDERED: ONDANSETRON HCL 4 MG/2 ML VIAL IV ONE (12:00)
[2017-07-17] MEDS ORDERED: NO SYSTEM NARCOTICS PRN (13:30)
[2017-07-17] MEDS ORDERED: DO NOT ADMINISTER ANTICOAGULANTS PRN (13:30)
[2017-07-17] MEDS ORDERED: fentaNYL 2MCG-BUPIV 0.125% 150 ML EPIDURAL PRN (13:30)
[2017-07-17] MEDS ORDERED: ePHEDrine/NS 25 MG/5 ML SYRINGE IV PUSH PRN (13:30)
[2017-07-17] MEDS ORDERED: CITRIC ACID-SODIUM CITRATE LIQ 30 ML UDC PO SCH (14:45)
[2017-07-17] MEDS ORDERED: MORPHINE SULFATE PF 5 MG/10 ML VIAL ONE (15:22)
[2017-07-17] MEDS ORDERED: ACETAMINOPHEN 1000 MG/100 ML 100 ML IV ONE ×2 (15:23→17:15)
[2017-07-17] MEDS ORDERED: EPIDURAL-DIPHENHYDRAMINE HCL 50 MG CAP PO PRN (15:40)
[2017-07-17] MEDS ORDERED: EPIDURAL-NALOXONE HCL 0.4 MG/ML AMP IV PUSH PRN (15:40)
[2017-07-17] MEDS ORDERED: EPIDURAL-NO SYSTEMIC NARCOTICS PRN (15:40)
[2017-07-17] MEDS ORDERED: EPIDURAL-DIPHENHYDRAMINE HCL 50 MG/ML VIAL IV PUSH PRN (15:40)
[2017-07-17] MEDS ORDERED: EPIDURAL-DO NOT ADMINISTER ANTICOAGULANTS PRN (15:40)
--- NOTE | 2017-07-17 16:22 | PD.OB.DELI ---
Procedure Note Section Procedure Pre Op Diagnosis: (1) Intrauterine growth restriction, antepartum (2) Failed trial of labor (3) 37 weeks gestation of (4) Advanced maternal age (AMA) in Post Op Diagnosis: (1) Delivered by section Performed by Mitali Paredes Procedure: Primary Low Transverse Sec Indication for delivery: Nonreassuring heart tracing (insertion), Other ( IUGR) Informed consent obtained: For anesthesia, For procedure Confirmed correct: Patient, Procedure, Site, Time-out taken Anesthesia: Epidural Medication prior to procedure: As documented in eMAR Monitoring during procedure: Blood pressure monitoring, doppler, Pulse oximetry Urinary catheter: Inserted using sterile technique, To dependent drainage Sterile preparation: In usual fashion, With 2% chlorexidine (Hibiclens) Position: Supine with wedge to right side Operative Features Skin Incision: Pfannenstiel Uterine Incision: Low transverse w/knife / blunt ext Membranes Ruptured: Artificially Presentation: Occiput anterior Delivery date: Jul 17, 2017 Delivery time: 16:21 Delivery of : Uneventful : Male One Minute : 8 Five Minute : 9 Weight: 5 Status of : Viable, Cord blood, Umbilical cord, Nursery present Placenta delivered: Intact Medications: Antibiotics, Oxytocin Estimated blood loss: 500 Procedure tolerated: Well Maternal Condition: Stable Condition: Stable Procedure in detail dictated Mitali Paredes MD Jul 17, 2017 16:22
[2017-07-17] MEDS ORDERED: ONDANSETRON HCL 4 MG/2 ML VIAL IV PUSH PRN (16:30)
[2017-07-17] MEDS ORDERED: SODIUM CHLORIDE 0.9% FLUSH 10 ML FLUSH IV FLUSH PRN (16:30)
[2017-07-17] MEDS ORDERED: oxyCODONE/ACETAMINOPHEN 5 MG/325 MG TAB PO PRN (16:30)
[2017-07-17] MEDS ORDERED: ONDANSETRON ODT 4 MG TAB PO PRN (16:30)
[2017-07-17] MEDS ORDERED: SIMETHICONE 80 MG CHEWABLE TAB PO PRN (16:30)
[2017-07-17] MEDS ORDERED: OXYTOCIN 30 UNITS-500ML PREMIX 500 ML IV ONE (16:30)
[2017-07-17] MEDS ORDERED: ACETAMINOPHEN 325 MG TAB PO PRN (16:30)
[2017-07-17] MEDS ORDERED: ZOLPIDEM TARTRATE 5 MG TAB PO PRN (16:30)
--- NOTE | 2017-07-17 16:55 | MP ---
cc: Mitali Paredes MD, Pamela P MD DATE OF OPERATION: 07/17/2017 PREOPERATIVE DIAGNOSIS: 1. A trial of labor at 37 weeks indicated because of intrauterine growth restriction due to peripheral cord insertion. 2. Obesity and mild blood pressure elevation and nonreassuring strip. POSTOPERATIVE DIAGNOSIS. 1. A trial of labor at 37 weeks indicated because of intrauterine growth restriction due to peripheral cord insertion. 2. Obesity and mild blood pressure elevation and nonreassuring strip. 3. Delivered. PROCEDURE PERFORMED: Primary low transverse segment section. ANESTHESIA: Epidural with Duramorph. BIAS BINDING FOLDER: Hank Mckoy MS3 FINDINGS: A living male was delivered from JULIAN with a tight cord around the feet. His Apgars are 8 at 1 and 9 at 5. He weighed 5 pounds. Cord gas and cord blood were obtained. The placenta did have a peripheral cord insertion and was sent to [facility] for harvesting. Fluid level was good. Tubes and ovaries were unremarkable. Estimated blood loss average. Sponge, instrument and needle count were correct. Mom and baby tolerated the procedure well and went to the recovery room stable. DESCRIPTION OF PROCEDURE: The patient was appraised of the indications for the section. She was taken to the back where her epidural was reinforced and Duramorph was placed. She had a Rosen catheter already in, sequential stockings were placed on the lower extremities and Ancef 2 grams was administered IV. A timeout was performed with all in attendance. After she was prepped and draped and an adequate analgesia was assured, a Pfannenstiel incision was made with a knife and carried down through to the rectus fascia. The rectus fascia was incised with scissors and taken off the rectus muscle. The rectus muscle was bluntly in the midline and the parietal peritoneum entered bluntly. A bladder flap was created off the lower uterine segment and a small incision made into the intrauterine cavity. This was extended vertically and bluntly. The amniotic sac was ruptured, and then the was delivered with the findings as noted above. The cord was allowed to pulse for 45 seconds prior to being clamped and cut and the infant was handed off to the neonatology team in attendance. The placenta was delivered manually intact with a 3-vessel cord, after cord gas and cord blood were obtained. Then the uterus was exteriorized, cleaned with a lap sponge and closed with chromic in a running interlocking fashion with a second horizontal imbricating layer. Then, the uterus was replaced in the abdominal cavity and irrigation was performed and clot removed. After assuring adequate hemostasis from the incision, the rectus muscle was approximated in a running suture and the fascia was closed with #1 Vicryl in a running noninterlocking fashion. Subcutaneous layer was closed with 3-0 plain and the skin was closed with 4-0 Vicryl on a Stanislaw needle. Estimated blood loss 500 mL. sponge, instrument and needle counts correct. Mom and baby tolerated the procedure well. MD LIYAH Stoddard/SA , 04:27 PM , 04:54 PM
[2017-07-17] MEDS ORDERED: LACTATED RINGER'S 1000 ML INJ 1,000 ML IV SCH (21:22)
[2017-07-18 06:40] LABS: AUTOMATED NEUTROPHIL # 11.4 TH/MM3 (1.8-7.7); BASOPHIL % 0.3 % (0.0-2.0); EOSINOPHIL % 0.1 % (0.0-4.0); HEMATOCRIT 31.1 % (35.0-46.0); HEMOGLOBIN 10.5 GM/DL (11.6-15.3); LYMPH % 16.3 % (9.0-44.0); LYMPHOCYTE # 2.4 TH/MM3 (1.0-4.8); MEAN CELL VOLUME 90.4 FL (80.0-100.0); MEAN CORPUSCULAR HEMOGLOBIN 30.5 PG (27.0-34.0); MEAN CORPUSCULAR HGB CONC 33.8 % (32.0-36.0); MONO % 5.8 % (0.0-8.0); MONOCYTE # 0.8 TH/MM3 (0-0.9); NEUT % 77.5 % (16.0-70.0); PLATELET COUNT 202 TH/MM3 (150-450); RED BLOOD COUNT 3.44 MIL/MM3 (4.00-5.30); RED CELL DISTRIBUTION WIDTH 13.8 % (11.6-17.2); WHITE BLOOD COUNT 14.7 TH/MM3 (4.0-11.0)
[2017-07-18] MEDS: DOCUSATE SODIUM 50 MG/SENNA 8.6 MG TAB PO PRN ×2 (08:20→20:04)
[2017-07-18] MEDS: LEVOTHYROXINE SODIUM 125 MCG TAB PO SCH (08:20)
[2017-07-18] MEDS: ACETAMINOPHEN 1000 MG/100 ML 100 ML IV SCH ×2 (08:21)
[2017-07-18] MEDS: SODIUM CHLORIDE 0.9% FLUSH 10 ML FLUSH IV FLUSH SCH (09:00)
--- NOTE | 2017-07-18 09:29 | HHI.OB ---
Subjective Post Operative Day: 1 Remarks In excellent spirits no CERDA, N, V Objective Vitals/I&O Vital Signs Date Time Temp Pulse Resp B/P (MAP) Pulse Ox O2 Delivery O2 Flow Rate FiO2 07/17/17 10:30 18 07/17/17 10:00 18 Result Diagram: 07/18/1762407/15/17 1804 Objective Remarks GENERAL: Well-nourished, well-developed patient. CARDIOVASCULAR: Regular rate and rhythm without murmurs, gallops, or rubs. RESPIRATORY: Breath sounds equal bilaterally. No accessory muscle use. ABDOMEN/GI: Abdomen soft, non-tender, bowel sounds present. bandage: Clean, dry and intact. Fundus: Firm, non-tender at umbilicus. GENITOURINARY: Light to moderate bleeding. EXTREMITIES: No cyanosis or edema, non-tender, without signs of DVT. Medications and IVs Current Medications Medications (Trade) Dose Ordered Sig/Michelle Route Start Time Stop Time Status Last Admin (Synthroid) 125 mcg DAILY@0600 PO 07/16/17 09:00 07/18/17 08:20 [place] [place] No systemic narcotics to be given except... UNSCH PRN .XX 07/17/17 13:30 07/18/17 13:29 [place] [place] [facility] [facility] [place] DO NOT ADMINISTER ANY ANTICOAGUL... UNSCH PRN .XX 07/17/17 13:30 07/18/17 13:29 Lactated Ringer's 1,000 ml @ 100 mls/hr Q10H IV 07/17/17 21:22 07/18/17 17:21 07/17/17 23:00 Oxytocin 500 ml @ 100 mls/hr UNSCH X1 PRN IV 07/17/17 21:30 07/18/17 21:29 (NS Flush) 2 ml BID IV FLUSH 07/17/17 21:00 (NS Flush) 2 ml UNSCH PRN IV FLUSH 07/17/17 16:30 (Mylicon Chew) 80 mg QID PRN PO 07/17/17 16:30 (Tylenol) 650 mg Q6H PRN PO 07/17/17 16:30 (Motrin) 600 mg Q6H PRN PO 07/17/17 16:30 (Percocet 5-325 Mg) 1 tab Q4H PRN PO 07/17/17 16:30 (Percocet 5-325 Mg) 2 tab Q4H PRN PO 07/17/17 16:30 (Venus-Colace) 2 tab Q12H PRN PO 07/17/17 16:30 07/18/17 08:20 (Ambien) 5 mg HS PRN PO 07/17/17 16:30 (M-M-R Ii Inj) 0.5 ml ONCE ONCE SQ 07/18/17 16:00 07/18/17 16:01 (Boostrix Inj) 0.5 ml ONCE ONCE IM 07/18/17 16:00 07/18/17 16:01 (Zofran Inj) 4 mg Q6H PRN IV PUSH 07/17/17 16:30 (Zofran Odt) 4 mg Q6H PRN PO 07/17/17 16:30 [place] [place] NO SYSTEMIC NARCOTICS TO BE GIVEN FO... UNSCH PRN .XX 07/17/17 15:40 07/18/17 15:39 (Narcan Inj) 0.4 mg UNSCH PRN IV PUSH 07/17/17 15:40 07/18/17 15:39 (Benadryl Inj) 25 mg Q6H PRN IV PUSH 07/17/17 15:40 07/18/17 15:39 (Benadryl) 50 mg Q6H PRN PO 07/17/17 15:40 07/18/17 15:39 [place] [place] [facility] [place] ALL NURSING DEPARTMENTS UNSCH PRN .XX 07/17/17 15:40 07/18/17 15:39 Acetaminophen 100 ml @ 400 mls/hr Q8H IV 07/18/17 00:00 07/18/17 16:14 07/18/17 08:21 Assessment/Plan Assessment and Plan A/P 41 yo G1 at 37w1d by L/6 (ALESIA 08/05/17) here for IOL secondary to IUGR and GHTN. 1. IUP: Cat 1 tracing. - GBS neg and cephalic by nursing US on admission. s/p BMZ on 07/04 - EFW (06/18) = 1631g (16%) AC 2%, Posterior placenta. 2. IOL: BS unfavorable in the office, nursing to place Cervidil. Allow to eat if cat 1 after placement 3. IUGR: based on AC of 2% on 06/18. UA dop have been elevated at time as an outpatient but was UL of normal on 07/07. Had been receiving serial growths due to peripheral cord insertion and the IUGR was found. 4. GHTN: Based on elevated BPs, normal HELLP labs and 24hr urine of 235mg (07/04) , however P:C 0.33, will repeat HELLP labs now. 5. Peripheral cord insertion: see above. 6. Hypothyroidism: Continue home Synthroid of 125 g daily, TSH normal on 2017 7. AMA: NIPS negative, normal AU. 8. Obesity / glucose intolerance: See above 9. Uterine fibroid: anterior intramural measuring 2 x 2 cm on 06/18/ US, should affect labor 10: h/o genital HSV: no lesions on outpt exam, has been compliant with valtrex for suppression. 11. RNI: vaccine . 07/18/17 POD 1 normal POD 1\BP good labs good pain controlled working on nursing anticipate discharge POD 3 Mitali Paredes MD Jul 18, 2017 09:29
[2017-07-18] MEDS: IBUPROFEN 600 MG TAB PO PRN ×2 (12:17→20:05)
[2017-07-18] MEDS ORDERED: MEASLES, MUMPS, RUBELLA VACCINE 0.5 ML VIAL SQ ONE (16:00)
[2017-07-18] MEDS ORDERED: DIPHTH/TETANUS/ACEL PERTUSSIS (BOOSTER) 0.5 ML VIAL/PFS IM ONE (16:00)
[2017-07-18 20:14] VITALS: BP 148/87; PULSE 117; RESP 19; TEMP 98.3
[2017-07-19] MEDS: IBUPROFEN 600 MG TAB PO PRN ×3 (02:00→18:14)
[2017-07-19] MEDS: oxyCODONE/ACETAMINOPHEN 5 MG/325 MG TAB PO PRN ×4 (06:48→23:21)
[2017-07-19] MEDS: LEVOTHYROXINE SODIUM 125 MCG TAB PO SCH (06:48)
[2017-07-19] MEDS: SODIUM CHLORIDE 0.9% FLUSH 10 ML FLUSH IV FLUSH SCH (09:00)
[2017-07-19] MEDS: DOCUSATE SODIUM 50 MG/SENNA 8.6 MG TAB PO PRN (11:29)
--- NOTE | 2017-07-19 12:34 | HHI.OB ---
Subjective Post Operative Day: 2 Remarks doing well with nursing baby needs bili lights pain controlled Objective Vitals/I&O Vital Signs Date Time Temp Pulse Resp B/P (MAP) Pulse Ox O2 Delivery O2 Flow Rate FiO2 07/18/17 20:14 98.3 117 19 148/87 (107) Result Diagram: 07/18/17 0625 07/15/17 1804 Objective Remarks GENERAL: Well-nourished, well-developed patient. CARDIOVASCULAR: Regular rate and rhythm without murmurs, gallops, or rubs. RESPIRATORY: Breath sounds equal bilaterally. No accessory muscle use. ABDOMEN/GI: Abdomen soft, non-tender, bowel sounds present. incision: Clean, dry and intact. Fundus: Firm, non-tender at umbilicus. GENITOURINARY: Light to moderate bleeding. EXTREMITIES: No cyanosis or edema, non-tender, without signs of DVT. Medications and IVs Current Medications Medications (Trade) Dose Ordered Sig/Michelle Route Start Time Stop Time Status Last Admin (Synthroid) 125 mcg DAILY@0600 PO 07/16/17 09:00 07/19/17 06:48 (NS Flush) 2 ml BID IV FLUSH 07/17/17 21:00 (NS Flush) 2 ml UNSCH PRN IV FLUSH 07/17/17 16:30 (Mylicon Chew) 80 mg QID PRN PO 07/17/17 16:30 (Tylenol) 650 mg Q6H PRN PO 07/17/17 16:30 (Motrin) 600 mg Q6H PRN PO 07/17/17 16:30 07/19/17 11:30 (Percocet 5-325 Mg) 1 tab Q4H PRN PO 07/17/17 16:30 07/19/17 11:30 (Percocet 5-325 Mg) 2 tab Q4H PRN PO 07/17/17 16:30 (Venus-Colace) 2 tab Q12H PRN PO 07/17/17 16:30 07/19/17 11:29 (Ambien) 5 mg HS PRN PO 07/17/17 16:30 (Zofran Inj) 4 mg Q6H PRN IV PUSH 07/17/17 16:30 (Zofran Odt) 4 mg Q6H PRN PO 07/17/17 16:30 Assessment/Plan Assessment and Plan A/P 41 yo G1 at 37w1d by L/6 (ALESIA 08/05/17) here for IOL secondary to IUGR and GHTN. 1. IUP: Cat 1 tracing. - GBS neg and cephalic by nursing US on admission. s/p BMZ on 07/04 - EFW (06/18) = 1631g (16%) AC 2%, Posterior placenta. 2. IOL: BS unfavorable in the office, nursing to place Cervidil. Allow to eat if cat 1 after placement 3. IUGR: based on AC of 2% on 06/18. UA dop have been elevated at time as an outpatient but was UL of normal on 07/07. Had been receiving serial growths due to peripheral cord insertion and the IUGR was found. 4. GHTN: Based on elevated BPs, normal HELLP labs and 24hr urine of 235mg (07/04) , however P:C 0.33, will repeat HELLP labs now. 5. Peripheral cord insertion: see above. 6. Hypothyroidism: Continue home Synthroid of 125 g daily, TSH normal on 2017 7. AMA: NIPS negative, normal AU. 8. Obesity / glucose intolerance: See above 9. Uterine fibroid: anterior intramural measuring 2 x 2 cm on 06/18/ US, should affect labor 10: h/o genital HSV: no lesions on outpt exam, has been compliant with valtrex for suppression. 11. RNI: vaccine . 07/18/17 POD 1 normal POD 1\BP good labs good pain controlled working on nursing anticipate discharge POD 3 POD 2 nursing well pain controlled will postpone circumcision discharge tomorrow Mitali Paredes MD Jul 19, 2017 12:34
[2017-07-20] MEDS: IBUPROFEN 600 MG TAB PO PRN ×2 (02:48→11:12)
[2017-07-20] MEDS: DOCUSATE SODIUM 50 MG/SENNA 8.6 MG TAB PO PRN (02:48)
[2017-07-20] MEDS: oxyCODONE/ACETAMINOPHEN 5 MG/325 MG TAB PO PRN ×2 (02:51→11:12)
[2017-07-20] MEDS: LEVOTHYROXINE SODIUM 125 MCG TAB PO SCH (06:04)
[2017-07-20] MEDS: SODIUM CHLORIDE 0.9% FLUSH 10 ML FLUSH IV FLUSH SCH (09:01)
--- NOTE | 2017-07-20 09:34 | HHI.DCPOC ---
Discharge Care Plan Diagnosis: (1) Delivered by section Your Health Problems Are: delivery Report Symptoms to Your Doctor -Temperature above 100.5 degrees -Redness, of incision or excessive or foul smelling drainage -Unusual pain or calf pain -Increased vaginal bleeding -Painful or difficulty urinating -Feelings of extreme sadness or anxiety after 2 weeks Goals to Promote Your Health * To prevent worsening of your condition and complications * To maintain your health at the optimal level Directions to Meet Your Goals Take your medications as prescribed Follow your dietary instruction Follow activity as directed Ensure plenty of rest for recovery Drink fluids for hydration Keep your appointments as scheduled Take your immunizations and boosters as scheduled If your symptoms worsen call your PCP, if no PCP go to Urgent Care Center or Emergency Room Smoking is Dangerous to Your Health. Avoid second hand smoke Call the 24-hour crisis hotline for domestic abuse at Deja Hunter MD Jul 20, 2017 09:34
[2017-07-20] MEDS ORDERED: PERI PO (09:37)
[2017-07-20] MEDS ORDERED: OXYC1TAB63 PO (09:37)
[2017-07-20] MEDS ORDERED: IBUP-232 PO (09:37)
--- NOTE | 2017-07-20 09:53 | HHI.OB ---
Subjective Post Operative Day: 3 Remarks s/p primary LTCD, failed induction for IUGR at 37 wks Objective Result Diagram: 07/18/17 0625 Objective Remarks GENERAL: Well-nourished, well-developed patient. denies headache, vision changes , RUQ pain, edema CARDIOVASCULAR: Regular rate and rhythm without murmurs, gallops, or rubs. RESPIRATORY: Breath sounds equal bilaterally. No accessory muscle use. ABDOMEN/GI: Abdomen soft, non-tender, bowel sounds present. incision: Clean, dry and intact. steri strips in place Fundus: Firm, non-tender at umbilicus. GENITOURINARY: Light bleeding. EXTREMITIES: No cyanosis or edema, non-tender, without signs of DVT. Medications and IVs Current Medications Medications (Trade) Dose Ordered Sig/Michelle Route Start Time Stop Time Status Last Admin (Synthroid) 125 mcg DAILY@0600 PO 07/16/17 09:00 07/20/17 06:04 (NS Flush) 2 ml BID IV FLUSH 07/17/17 21:00 (NS Flush) 2 ml UNSCH PRN IV FLUSH 07/17/17 16:30 (Mylicon Chew) 80 mg QID PRN PO 07/17/17 16:30 07/20/17 02:49 (Tylenol) 650 mg Q6H PRN PO 07/17/17 16:30 (Motrin) 600 mg Q6H PRN PO 07/17/17 16:30 07/20/17 02:48 (Percocet 5-325 Mg) 1 tab Q4H PRN PO 07/17/17 16:30 07/20/17 02:51 (Percocet 5-325 Mg) 2 tab Q4H PRN PO 07/17/17 16:30 (Venus-Colace) 2 tab Q12H PRN PO 07/17/17 16:30 07/20/17 02:48 (Ambien) 5 mg HS PRN PO 07/17/17 16:30 (Zofran Inj) 4 mg Q6H PRN IV PUSH 07/17/17 16:30 (Zofran Odt) 4 mg Q6H PRN PO 07/17/17 16:30 Assessment/Plan Problem List: (1) Gestational hypertension ICD Codes: O13.9 - Gestational [-induced] hypertension without significant proteinuria, unspecified trimester Status: Chronic (2) Delivered by section ICD Codes: Z38.01 - Single liveborn infant, delivered by Status: Acute Assessment and Plan POD#3 doing well, meeting all criteria, plan 1 week office check w BP check and eval infant for circ in office at that time; too small to perform circ now Discharge Planning routine Deja Hunter MD Jul 20, 2017 09:53
== END 2017-07-20 12:11 | disposition home or self-care (01) | DRG 765 ==
LOC: H2EA 17:48 → H1EA 07-17 17:58
PROVIDERS: ADMIT Obstetrics & Gynecology; ATTEND Obstetrics & Gynecology
PROC: 3E0P7VZ Introduction of Hormone into Female Reproductive, Via Natural or Artificial Opening (ICD-10-PCS; 2017-07-15)
PROC: 10D00Z1 Extraction of Products of Conception, Low, Open Approach (ICD-10-PCS; principal; 2017-07-17)
PROC: 0U7C7DZ Dilation of Cervix with Intraluminal Device, Via Natural or Artificial Opening (ICD-10-PCS; 2017-07-17)
PROC: 3E0R3BZ Introduction of Anesthetic Agent into Spinal Canal, Percutaneous Approach (ICD-10-PCS; 2017-07-17)
PROC: 00HU33Z Insertion of Infusion Device into Spinal Canal, Percutaneous Approach (ICD-10-PCS; 2017-07-17)
DX: O36.5930 Maternal care for other known or suspected poor fetal growth, third trimester, not applicable or unspecified (principal); Z68.41 Body mass index [BMI] 40.0-44.9, adult; O99.214 Obesity complicating childbirth; E66.9 Obesity, unspecified; O76 Abnormality in fetal heart rate and rhythm complicating labor and delivery; O61.0 Failed medical induction of labor; O69.89X0 Labor and delivery complicated by other cord complications, not applicable or unspecified; O99.284 Endocrine, nutritional and metabolic diseases complicating childbirth; E03.9 Hypothyroidism, unspecified; O13.4 Gestational [pregnancy-induced] hypertension without significant proteinuria, complicating childbirth; O75.89 Other specified complications of labor and delivery; D25.1 Intramural leiomyoma of uterus; A60.00 Herpesviral infection of urogenital system, unspecified; Z79.899 Other long term (current) drug therapy; E74.39 Other disorders of intestinal carbohydrate absorption; Z37.0 Single live birth; Z3A.37 37 weeks gestation of pregnancy
CPT/HCPCS: 59025; 80053; 80307; 81001; 85025; 86900; 86901; 87077; 87086; 87186; 90707; G0481; J0131; J0690; J1100; J2274; J2405; J2590; J3010; J7120